=== PATIENT | male | born 1945 | race African-American/Black ===

== ENCOUNTER 2018-10-01 14:51 | Inpatient (IN) | payer MEDICARE, MEDICAID ==
[2018-10-01 16:26] LABS: #Lymphocytes 0.9 thou/uL (1.20-3.40); #Monocytes 0.5 thou/uL (0.11-0.59); #Neutrophils 7.2 thou/uL (1.40-6.50); %Basophils 0.4 % (0.0-1.0); %Eosinophils 0.1 % (0.0-10.0); %Lymphocytes 10.3 % (21.0-51.0); %Monocytes 5.7 % (0.0-10.0); %Neutrophils 83.5 % (42.0-75.0); Hemoglobin 15.1 g/dL (14.0-18.0); Mean Corpuscular HGB CONC 33.2 g/dL (32.0-36.0); Mean Corpuscular Hemoglobin 30.4 pg (27.0-31.0); Mean Corpuscular Volume 91.4 fL (78.0-98.0); Mean Platelet Volume 9.9 fL (7.4-10.4); Platelet Count 128 thou/uL (130-400); RBC Distribution Width 14.1 % (11.5-14.5); Red Blood Cell (RBC) Count 4.98 mill/uL (4.70-6.10); White Blood Cell (WBC) Count 8.7 thou/uL (4.8-10.8)
--- NOTE | 2018-10-01 16:28 | PDOC.FPRHP ---
- History of Present Illness Chief Complaint: ataxia History of Present Illness: 72yo M with pmh HTN presenting from [place] ED with complaints of stroke symptoms. Onset this morning at 1am pt fell on kitchen floor and caught himself though he was unable to get back up for about an hour. He crawled to his bed and fell asleep. Upon awakening he was still symptomatic and called EMS. At [place] ED pt found via head CT to have "interval development of hypodensity with loss of kearney white differentiation involving a 3-4cm area of R cerebellar hemisphere suspicious for recent infarction". Pt given 324mg ASA and transferred to [facility] ED. On ros pt also revealed that he had intermittent dull 6/10 CP after fall last night, it returns immediately on movement ED Course: see HPI - Allergies/Adverse Reactions Allergies Allergy/AdvReac Type Severity Reaction Status Date / Time No Known Drug Allergies Allergy Verified 10/01/18 18:07 - History PMHx: HTN PSHx: L shoulder arthroscopic procedure, appendectomy, hernia x2 FHx: stroke (sister, uncle) Social: Cigars (3/day x60 years), no etoh, no drugs - Review of Systems General: reports: fatigue. denies: fever/chills Eyes: reports: other (intermittent double vision). denies: eye pain ENT: denies: nasal congestion, rhinorrhea Respiratory: denies: congestion, shortness of breath Cardiovascular: denies: chest pain, palpitation Gastrointestinal: denies: nausea, vomiting Genitourinary: denies: dysuria, polyuria Skin: denies: rashes, lesions Musculoskeletal: denies: stiffness, swelling Neurological: reports: weakness, other (no aphasia, no facial droop). denies: numbness, syncope, seizure Psychological: denies: anxiety, depression - Vital signs BP: [131/71] HR: [68] RR: [18] Tmax: [97.7] Pox: [97]% on [ra] Wt: [93kg] - Physical Exam Constitutional: NAD, awake, alert and oriented HEENT: normocephalic and atraumatic, EOMI, grossly normal vision, grossly normal hearing, MMM Neck: supple, trachea midline Chest: no-tender to palpation Heart: RRR, normal S1/S2 Lungs: CTAB, no respiratory distress, good air movement Abdomen: soft, non-tender, bowel sounds present Musculoskeletal: normal structure, normal tone Neurological: CN II-XII intact, normal sensation, DTRs 2+, other (Strength 5/5 RUE extension/flesion, 5/5 hip flexion/extension, 5/5 ankle extension/flexion, HINTS) Skin: no rash/lesions, good turgor Heme/Lymphatic: no unusual bruising or bleeding, no purpura Psychiatric: normal mood and affect, intact recent and remote memory FMR H&P: Results - Labs Result Diagrams: 10/01/18 16:18 10/01/18 16:18 Lab results: WBC 8.7 thou/uL (4.8-10.8) 10/01/18 16:18 Hgb 15.1 g/dL (14.0-18.0) 10/01/18 16:18 Hct 45.6 % (42.0-52.0) 10/01/18 16:18 MCV 91.4 fL (78.0-98.0) 10/01/18 16:18 Plt Count 128 thou/uL (130-400) L 10/01/18 16:18 Neutrophils % 83.5 % (42.0-75.0) H 10/01/18 16:18 FMR H&P: A/P - Problem List (1) Ischemic stroke Current Visit: Yes Status: Acute Code(s): I63.9 - CEREBRAL INFARCTION, UNSPECIFIED (2) Elevated CK-MB level Current Visit: Yes Status: Acute Code(s): R74.8 - ABNORMAL LEVELS OF OTHER SERUM ENZYMES (3) Hypertension Current Visit: Yes Status: Acute Code(s): I10 - ESSENTIAL (PRIMARY) HYPERTENSION (4) Tobacco abuse Current Visit: Yes Status: Acute Code(s): Z72.0 - TOBACCO USE - Plan Acute right cerebellar CVA A- Head CT shows R cerebellar hemisphere infarction. Pt s/p 324mg ASA, and is out of tPA window. P- will consult stroke team - CTA- head and neck - MRI brain - ASA 81 mg daily - Atorvastatin - TTE - FLP and A1c HTN A- in 48 hr window for permissive HTN P- hydralazine PRN if SBP > 220 - will attempt to obtain proper med rec from family in AM Elevated CKMB A- likely 2/2 fall, normal trop x2 P- will check CPK Tobacco abuse - encourage cessation - PRN nicotine patch Diet: NPO pending dysphasia screen, then PPx: Fall, SCD Code: FULL Dispo: at least 2 nights, inpatient FMR H&P: Upper Level - Pertinent history 72 yo AAM PMH HTN and tobacco abuse. Presents with lower extremity weakness that started at approximately 0100 on 10/01/18. States he stood up in his kitchen and tried to walk to a different room when he lost control of his legs and fell to the floor. Denies LOC or head trauma. States he was on the ground for approximately 1 hour before he was able to bring himself to his feet. States he stumbled to his bedroom and leaned on the jackson to maintain his balance. States he slept until approximately 1000 today. States symptoms were still present which prompted him to seek evaluation at ER. [facility] S& ER in [place]: Labs, EKG, CT-brain, ASA 324mg, zofran [address] [facility] ER: Labs, CXR, - Pertinent findings Vitals: WNL GEN: NAD, A&Ox4, appropriately interactive. CV: RRR, no murmur Pulm: CTA-B, normal effort Neuro: CN2-12 intact, 5/5 strength all major muscle groups, 2/4 patellar reflexes, negative HiNTS exam, Difficulty with [id number] and itxl-bv-btuy movement. Extremity: no edema EKG: Sinus bradycardia, rate 54 (60s at time of exam), normal intervals, QTc 423 , normal axis. CXR: no acute processes CT-Brain: Right cerebellar CVA, suspect acute - Plan Date/Time: 10/01/18 1628 I, Merritt Graf MD, have evaluated this patient and agree with findings/plan as outlined by internet sales representative resident. Pertinent changes/additions are listed here. 1. Acute right cerebellar CVA: - consult stroke team - CTA- head and neck - MRI brain - ASA 81 mg daily - High intensity statin - outside tPA window - allow permissive HTN - TTE - FLP and A1c to risk stratify 2. HTN: - Med rec - permissive HTN 3. Tobacco abuse - encourage cessation - PRN nicotine patch 4. Elevated CKMB- likely 2/2 fall, normal trop x2 - check CPK - fluids if elevated - Trend x3 5. Diet: NPO pending dysphasia screen, then HH 6. PPx: Fall, SCD 7. Code: FULL DISPO: Inpatient, Stroke, >2midnights. Discussed with Dr. Bonds. Attending Addendum - Attending Addendum Date/Time: 10/02/18 0052. Seen on 10/01. I personally evaluated the patient and discussed the management with Dr. Alvarado. I agree with and repeated the History, Examination, Assessment and Plan documented above with any addition or exceptions noted below. The patient still feels like he cannot walk. He declines a detailed examination after "too many" tonight. He wants to sleep. He is also quite vague about his chest pain but denies any currently. He visibly moves all four extremities with good flexion and extension in bed. He has no obvious dysarthria on exam or facial asymmetry. His heart is regular without murmur, he has no carotid bruits. His lungs are clear with no increased effort. MRI ordered. Radiology called and asked us to cancel CTA as they said it was unnecessary. Will discuss with neuro in the AM. I am concerned about the nature of his CP. On his ECG he had no obvious TOVA or pronounced T wave changes concerning for [place], for instance. As he is currently CP free at the time of my exam will trend Tn and monitor his symptoms. A cardiology consultation would be reasonable, as his pain has been described as being typical on previous interviews. Permissive hypertension. Secondary prevention. PT/OT in the AM. Neuro consultation. Consider cards consultation vs stress per day team.
--- NOTE | 2018-10-01 16:36 | RAD ---
ONE VIEW CHEST: History: Right sided cerebral infarct. Altered mental status. Comparison: None. FINDINGS: Normal cardiac silhouette. The pulmonary vessels and hilum are normal. Costophrenic angles are clear. No consolidation or mass. No pneumothorax or osseous abnormalities. Hyperdense material projects ove r the proximal right upper extremity. IMPRESSION: No acute cardiopulmonary process. POS: [facility]
[2018-10-01 16:47] LABS: ALT (SGPT) 20 U/L (8-55); AST (SGOT) 22 U/L (5-34); Albumin 3.6 g/dL (3.4-4.8); Alkaline Phosphatase 79 U/L (40-150); Anion Gap 13 mmol/L (10-20); BUN (Urea Nitrogen) 17 mg/dL (8.4-25.7); Bilirubin, Total 0.3 mg/dL (0.2-1.2); Calc. Creatinine Clearance 0 mL/min (70-130); Carbon Dioxide 24 mmol/L (23-31); Chloride 106 mmol/L (98-107); Estimated GFR-MDRD Greater than 90; Globulin 3.3 g/dL (2.4-3.5); Glucose 124 mg/dL (80-115); Lipase 61 U/L (8-78); Magnesium 1.8 mg/dL (1.6-2.6); Potassium 4.2 mmol/L (3.5-5.1); Protein, Total 6.9 g/dL (5.8-8.1); Sodium 139 mmol/L (136-145)
[2018-10-01 16:50] LABS: Troponin I Less than 0.010 ng/mL (< 0.028)
[2018-10-01 16:53] LABS: CKMB 11.9 ng/mL (0-6.6)
[2018-10-01] MEDS ORDERED: Ondansetron PF 4 MG/2 ML Vial ONE (16:58)
[2018-10-01] MEDS ORDERED: Acetaminophen 325 MG TAB PO PRN (18:54)
[2018-10-01] MEDS ORDERED: Ondansetron ODT 4 MG TAB PO PRN (18:54)
[2018-10-01] MEDS ORDERED: hydrALAZINE 20 MG/ML VIAL SLOW IVP PRN (18:54)
[2018-10-01 19:17] LABS: Hemoglobin A1c 6.1 % (4.0-6.0)
[2018-10-01 19:34] LABS: Troponin I Less than 0.010 ng/mL (< 0.028)
[2018-10-01] MEDS: Atorvastatin Calcium 40 MG TAB PO SCH (20:26)
[2018-10-01] MEDS: Nicotine 21 MG PATCH TD SCH (20:26)
[2018-10-01] MEDS: Lactated Ringer's 1,000 ML IV SCH (20:30)
[2018-10-01 21:52] VITALS: BMI 27.0
[2018-10-01 22:16] LABS: Troponin I Less than 0.010 ng/mL (< 0.028)
[2018-10-01 22:22] LABS: CKMB 8.7 ng/mL (0-6.6); Critical Call CKMBM RESULT DECREASING
[2018-10-02] MEDS: Lactated Ringer's 1,000 ML IV SCH (05:08)
--- NOTE | 2018-10-02 05:33 | PDOC.FM ---
- Subjective Subjective: Mr. Medley was resting well in bed. Has no complaints this morning other than that he is hungry. He is unsure if his weakness has improved as he has not gotten out of bed yet. Denies headache, N/V, CP. - Objective MAR Reviewed: Yes Vital Signs & Weight: Vital Signs (12 hours) Temp Pulse Resp BP Pulse Ox 10/02/18 04:00 98 F 66 12 114/61 92 L 10/02/18 00:00 98.4 F 67 17 118/70 96 10/01/18 20:00 97.8 F 69 17 122/65 97 10/01/18 18:45 97.7 F 61 16 113/66 100 Weight Weight 90.446 kg Result Diagrams: 10/01/18 16:18 10/02/18 04:32 Phys Exam - Physical Examination Constitutional: NAD HEENT: moist MMs Respiratory: no wheezing, no rhonchi, clear to auscultation bilateral Cardiovascular: RRR, no significant murmur Gastrointestinal: soft (surgical scar), non-tender, no distention, positive bowel sounds Musculoskeletal: no edema Neurological: non-focal, normal sensation CN intact, 5/5 muscle strength in all extremities Psychiatric: normal affect Skin: normal turgor, cap refill <2 seconds Dx/Plan (1) Ischemic stroke Code(s): I63.9 - CEREBRAL INFARCTION, UNSPECIFIED Status: Acute (2) Elevated CK-MB level Code(s): R74.8 - ABNORMAL LEVELS OF OTHER SERUM ENZYMES Status: Acute (3) Hypertension Code(s): I10 - ESSENTIAL (PRIMARY) HYPERTENSION Status: Acute (4) Thrombocytopenia Code(s): D69.6 - THROMBOCYTOPENIA, UNSPECIFIED Status: Acute (5) Tobacco abuse Code(s): Z72.0 - TOBACCO USE Status: Chronic - Plan Plan: 72 yo M with PMH HTN presents with weakness and found to have R cerebellar CVA. Acute right cerebellar CVA - Initial head CT shows R cerebellar hemisphere infarction. Pt s/p 324mg ASA, and is out of tPA window. - Consult stroke team today, Dr. Koehler - CTA was ordered, however radiology requested it be cancelled as it was not necessary. - MRI brain pending - ASA 81 mg daily, Atorvastatin - allow permissive HTN - TTE pending HTN - in 48 hr window for permissive HTN. SBPs have been 120s or less. - hydralazine PRN if SBP > 220 - will attempt to obtain proper med rec from family in AM Elevated CKMB - likely 2/2 fall, normal trop x2 - downtrending 11.9-->8.7 Prediabetes - A1c 6.1 - No history of diabetes or abnormal BG Tobacco abuse - encourage cessation - PRN nicotine patch Diet: NPO pending dysphasia screen, then PPx: SCD Code: FULL Dispo: pending CVA workup
[2018-10-02 05:39] LABS: Anion Gap 12 mmol/L (10-20); BUN (Urea Nitrogen) 17 mg/dL (8.4-25.7); Calc. Creatinine Clearance 84 mL/min (70-130); Calcium 8.9 mg/dL (7.8-10.44); Carbon Dioxide 23 mmol/L (23-31); Cardiac Risk 3.7 (Less than 4.5); Chloride 107 mmol/L (98-107); Cholesterol 129 mg/dl (< 200 Desired); Estimated GFR-MDRD 84; Glucose 130 mg/dL (80-115); HDL Cholesterol 35 mg/dL (>60 Neg Risk); LDL Cholesterol, Calculated 77 mg/dL; Potassium 4.3 mmol/L (3.5-5.1); Sodium 138 mmol/L (136-145); Triglycerides 86 mg/dL (Less than 150)
[2018-10-02] MEDS: Aspirin 81 mg Enteric Coated Tablet PO SCH (08:06)
--- NOTE | 2018-10-02 11:18 | MRI ---
MRI BRAIN NONCONTRAST: INDICATION: Stroke, right-sided weakness. FINDINGS: There is no evidence of ventriculomegaly. There is a large region of restricted diffusion of the rig ht cerebellar hemisphere and multifocal small areas of restricted diffusion also seen within the cere bellar vermis, left cerebellar hemisphere, and approximating the right inferior cerebellar peduncle. No evidence of significant intracranial hemorrhage. There is mild to moderate chronic microvascular ischemic disease. IMPRESSION: Recent infarctions of the posterior fossa as discussed above. There is signal alteration of the righ t vertebral flow void, limited in assessment. Consider dedicated MRA neck with contrast and 3D time- of-flight MRA [place] for further evaluation. POS: [facility]
--- NOTE | 2018-10-02 11:54 | PRG ---
DATE OF SERVICE: 10/02/2018 This is an addendum to the note of Dr. Sonia Yang. Mr. Medley was admitted with a cerebellar stroke. He has just returned from MRI. The MRI shows re cent infarctions of the posterior fossa. There is signal alteration of the right vertebral blood alex w. Radiology recommends a dedicated MRA of the neck with contrast and 3D time of flight MRA [place] for further evaluation. Clinically, Mr. Medley is stable on aspirin and statin therapy. His blood pressure is normal.
[2018-10-02] MEDS ORDERED: hydrOXYzine 25 MG TAB PO PRN (12:04)
[2018-10-02] MEDS ORDERED: Benzonatate 100 MG CAP PO PRN (12:04)
--- NOTE | 2018-10-02 15:36 | MRI ---
MRA [place] 3D VOLUME RENDERING, NONCONTRAST: HISTORY: Cerebellar stroke with history of right-sided weakness. FINDINGS: There is absence of an imaged and distal right vertebral artery. The distal left vertebral artery an d basilar artery are patent. Each MAIL DISTRIBUTION SCHEME EXAMINER reveals symmetric patency. There is no high-grade stenosis or occlusion of the PAM[place]A or MCA bilaterally. The bilateral terminal carotid arteries reveal flow-relate d signal without high-grade stenosis or occlusion. No discrete intracranial aneurysm is visualized. IMPRESSION: Nonvisualization of distal right vertebral artery, which may relate to occlusion or a more proximal f low-limiting stenosis. Correlate with findings on MRA neck exam for further assessment of the verteb ral artery. POS: [facility]
--- NOTE | 2018-10-02 15:48 | MRI ---
MRA NECK WITH AND WITHOUT CONTRAST WITH 3D VOLUME RENDERING: CLINICALLY INDICATIONS: Right cerebellar infarction. Right-sided weakness. FINDINGS: There is near complete absence of flow within the right vertebral artery, compatible with near comple te occlusion. The left vertebral artery is patent. Evaluation of the bilateral cervical and interna l carotid arteries reveals no high-grade stenosis or occlusion on the right, and a focal area of mode rate stenosis at the left carotid bulb. Imaged aortic arch is patent, as are the origins of the grea t vessels that emanate from the aortic arch. IMPRESSION: 1. Near complete absence of flow within the right vertebral artery, compatible with occlusion. 2. Moderate focal stenosis of the left carotid bulb. POS: [facility]
[2018-10-02] MEDS: Nicotine 21 MG PATCH TD SCH (21:31)
[2018-10-02] MEDS: Atorvastatin Calcium 40 MG TAB PO SCH (21:31)
--- NOTE | 2018-10-03 06:21 | PDOC.FM ---
- Subjective Subjective: Mr. Medley has no complaints this morning. Says working with PT was alright. Agreeable to go to rehab. Says he doesn't know if his weakness has improved since he hasn't gotten out of bed yet this morning. - Objective MAR Reviewed: Yes Vital Signs & Weight: Vital Signs (12 hours) Temp Pulse Resp BP Pulse Ox 10/02/18 20:30 97 10/02/18 20:00 97.5 F L 63 18 123/62 97 Weight Weight 90.446 kg I&O: 10/01/18 10/02/18 10/03/18 06:59 06:59 06:59 Intake Total 1525 1120 Output Total 850 Balance 675 1120 Result Diagrams: 10/01/18 16:18 10/02/18 04:32 Phys Exam - Physical Examination Constitutional: NAD HEENT: moist MMs Respiratory: no wheezing, clear to auscultation bilateral Cardiovascular: RRR, no significant murmur Gastrointestinal: soft, non-tender, positive bowel sounds Musculoskeletal: no edema Neurological: non-focal, moves all 4 limbs Psychiatric: normal affect Skin: normal turgor, cap refill <2 seconds Dx/Plan (1) Ischemic stroke Code(s): I63.9 - CEREBRAL INFARCTION, UNSPECIFIED Status: Acute (2) Elevated CK-MB level Code(s): R74.8 - ABNORMAL LEVELS OF OTHER SERUM ENZYMES Status: Acute (3) Hypertension Code(s): I10 - ESSENTIAL (PRIMARY) HYPERTENSION Status: Acute (4) Thrombocytopenia Code(s): D69.6 - THROMBOCYTOPENIA, UNSPECIFIED Status: Acute (5) Tobacco abuse Code(s): Z72.0 - TOBACCO USE Status: Chronic (6) Physical deconditioning Code(s): R53.81 - OTHER MALAISE Status: Acute - Plan Plan: 72 yo M with PMH HTN presents with weakness and found to have R cerebellar CVA. Acute right cerebellar CVA - Initial head CT shows R cerebellar hemisphere infarction. Pt s/p 324mg ASA, and was out of tPA window. - Consult stroke team, Dr. 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 - ASA 81 mg daily, Atorvastatin - Echo showed 55-60% EF, diastolic dysfxn, mild mitral and tricuspid regurgitation HTN - Allow permissive HTN, SBPs have been 120-150s, will not start amlodipine at this time - pt prescribed amlodipine 5mg, however per pharmacy, has not filled med for over 1 month, likely noncompliant - Hydralazine prn Physical Deconditioning - patient reports weakness - PT consulted - Rehab screen Elevated CKMB - likely 2/2 fall, normal trop x2 - downtrended 11.9-->8.7 Prediabetes - A1c 6.1 - No history of diabetes or abnormal BG Tobacco abuse - encourage cessation - PRN nicotine patch Diet: IGNACIO PPx: SCD Code: FULL Dispo: pending neurology consult then possible d/c to rehab
[2018-10-03] MEDS: Aspirin 81 mg Enteric Coated Tablet PO SCH (08:28)
--- NOTE | 2018-10-03 11:12 | PRG ---
DATE OF SERVICE: 10/03/2018 This is an addendum to the note of Dr. Sonia Yang. Mr. Medley is sitting quietly in bed in no distress. His protime is still not therapeutic. We alisha l continue his current dose of Coumadin as per suggestions of Pharmacy Service.
--- NOTE | 2018-10-03 11:52 | ADD-PRG ---
DATE OF SERVICE: 10/03/2018 This is an addendum to the note of Dr. Sonia Yang. Mr. Medley is resting in bed quietly in no distress. He does have a slight posterior headache, but no new complaints. 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 He is undergoing physical therapy. He is already on aspirin and a statin. We will await further recommendations from Neurology.
[2018-10-03] MEDS: Atorvastatin Calcium 40 MG TAB PO SCH (22:46)
[2018-10-03] MEDS: Nicotine 21 MG PATCH TD SCH (22:47)
--- NOTE | 2018-10-03 23:27 | CON ---
DATE OF CONSULTATION: 10/03/2018 CONSULTING PHYSICIAN: Hospitalist Service. IMPRESSION: 1. 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 2. Hypertension. PLAN: 1. Aspirin 325 mg per day. 2. Low-dose statin. 3. The patient will be discharged home. HISTORY OF PRESENT ILLNESS: Mr. Medley is a 72-year-old gentleman with past history of hypertension, had an acute onset of problems affecting the right side of the body, who came into the emergency room for evaluation. MRI subsequently revealed a fairly large area of infarct involving the inferior portion of the right cerebellum. MRA of the cerebral vessels was unremarkable other than an absent right vertebral artery. There was no retrograde flow in the right vertebral artery. The patient was not taking aspirin prior to admission. PAST MEDICAL HISTORY: As listed above. ALLERGIES: NONE REPORTED. SOCIAL HISTORY: Unremarkable. FAMILY HISTORY: Unremarkable. REVIEW OF SYSTEMS: No complaint of headache, nausea, difficulty speaking, difficulty swallowing. Positive for mild dizziness and some mild instability of gait. PHYSICAL EXAMINATION: GENERAL: He is a healthy-appearing elderly man, in no distress. HEENT: Pupils are equal and reactive. Conjunctivae are clear. Oropharynx is clear. No nystagmus is present. NECK: Supple. EXTREMITIES: There are some postsurgical changes in the right distal arm and inability to use the right hand. Mild peripheral edema, but no cyanosis. NEUROLOGIC: Alert and appropriate. Speech is fluent and clear. Cranial nerves 2 through 12 are intact. Motor exam showed good antigravity strength bilaterally. There appeared to be some mild dysmetria in the right arm. Kcdf-hs-[id number] movements were equal. Sensation was equal. Plantar response was upgoing on the right. DIAGNOSTIC STUDIES: EKG showed normal sinus rhythm. SUMMARY: A pleasant elderly gentleman who had a right cerebellar infarct, he is improving since admission. I agree with continuing aspirin and statin. I think that he can go for outpatient therapy given his level of function. Job ID: [id number]
--- NOTE | 2018-10-04 05:23 | PDOC.FM ---
- Subjective Subjective: Mr. Medley has no complaints this morning. Eating and resting well. Reports very minimal posterior headache. Awaiting placement today. - Objective Vital Signs & Weight: Vital Signs (12 hours) Temp Pulse Resp BP Pulse Ox 10/04/18 04:00 98.2 F 83 16 138/83 93 L 10/04/18 00:00 98.6 F 82 15 144/77 H 94 L 10/03/18 20:00 97.6 F 79 16 136/82 95 Weight Weight 90.446 kg I&O: 10/02/18 10/03/18 10/04/18 06:59 06:59 06:59 Intake Total 1525 1480 2390 Output Total 238 906 4431 Balance 675 1080 1390 Result Diagrams: 10/01/18 16:18 10/02/18 04:32 Phys Exam - Physical Examination Constitutional: NAD Respiratory: clear to auscultation bilateral Cardiovascular: RRR, no significant murmur Gastrointestinal: soft, non-tender, no distention, positive bowel sounds Musculoskeletal: no edema Neurological: moves all 4 limbs Psychiatric: normal affect Skin: no rash, cap refill <2 seconds Dx/Plan (1) Ischemic stroke Code(s): I63.9 - CEREBRAL INFARCTION, UNSPECIFIED Status: Acute (2) Elevated CK-MB level Code(s): R74.8 - ABNORMAL LEVELS OF OTHER SERUM ENZYMES Status: Acute (3) Hypertension Code(s): I10 - ESSENTIAL (PRIMARY) HYPERTENSION Status: Acute (4) Thrombocytopenia Code(s): D69.6 - THROMBOCYTOPENIA, UNSPECIFIED Status: Acute (5) Tobacco abuse Code(s): Z72.0 - TOBACCO USE Status: Chronic (6) Physical deconditioning Code(s): R53.81 - OTHER MALAISE Status: Acute - Plan Plan: 72 yo M with PMH HTN presents with weakness and found to have R cerebellar CVA. Acute right cerebellar CVA - Initial head CT shows R cerebellar hemisphere infarction. Pt s/p 325mg ASA, and was out of tPA window. - Consult stroke team, Dr. 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 - ASA 325 mg daily, Atorvastatin - Echo showed 55-60% EF, diastolic dysfxn, mild mitral and tricuspid regurgitation HTN - SBPs have been 120-150s - pt prescribed amlodipine 5mg, however per pharmacy, has not filled med for over 1 month, likely noncompliant - Hydralazine prn Physical Deconditioning - patient reports weakness - PT consulted - Rehab screen Elevated CKMB, improved - likely 2/2 fall, normal trop x2 - downtrended 11.9-->8.7 Prediabetes - A1c 6.1 - No history of diabetes or abnormal BG Tobacco abuse - encourage cessation - PRN nicotine patch Diet: IGNACIO PPx: SCD Code: FULL Dispo: discharge to rehab when approved
[2018-10-04] MEDS ORDERED: Aspirin 325 MG TAB PO SCH (09:00)
--- NOTE | 2018-10-04 11:01 | PQF ---
DATE: 10-04-18 ATTN: DR. HERIBERTO RODRIGUEZ Please exercise your independent, professional judgment in responding to the clarification form. Clinical indicators are provided on the bottom of this form for your review Please check appropriate box(s): [ ] Hemiplegia Specify: [ ] Non dominant side [ ] Dominant side Status: [ ] Complete [ ] Incomplete [ x] Weakness due to CVA (please specify anatomical area) Specify: [ ] Non dominant side [ x] Dominant side [ ] Other diagnosis [ ] Unable to determine In addition, please specify: Present on Admission (POA): [x] Yes [ ] No [ ] Unable to determine CLINICAL INDICATORS - SIGNS / SYMPTOMS / LABS H&P: ACUTE RIGHT CEREBELLAR CVA PHYSICAL THERAPY 10-03-18: Pt has met transfer indp STG, and has achieved distance portion of gait STG. Despite progress, further PT is needed to addres R sided hemiparesis/proprioceptive deficits as these cont to affect pts balance, safety, and functional indp. RISK FACTORS: H&P: ACUTE RIGHT CEREBELLAR CVA TREATMENT: PHYSICAL THERAPY CONSULT 10-03-18: RECOMMENDATIONS: REHAB CTR, OCCUPATIONAL THERAPY, PHYSICAL THERAPY (This form is maintained as a part of the permanent medical record) 2015 [employer]. All Rights Reserved [email or web address] Office: [phone] GIGI
[2018-10-04 11:34] VITALS: BP 162/90; TEMP 97.7
--- NOTE | 2018-10-05 08:54 | PRG ---
DATE OF SERVICE: 10/04/2018 ADDENDUM: This is an addendum to the note of Dr. Sonia Yang. Mr. Medley is ambulating in the [place] with a walker with no difficulty. He looks and feels fine and will be discharged today for outpatient physical therapy. He is again instructed to take aspirin, atorvastatin, and continue with his blood pressure medication. He was seen in consultation by Dr. Koehler of Neurology Service, who agree with our management. Job ID: [id number]
--- NOTE | 2018-10-05 15:21 | DIS ---
DATE OF ADMISSION: 10/01/2018 DATE OF DISCHARGE: 10/04/2018 ADMITTING ATTENDING: Diego Bonds MD CONSULT: Neurology, Dr. Bowen. PROCEDURES: 1. On 10/01/2018, chest x-ray showed no acute cardiopulmonary process. 2. On 10/02/2018, brain MRI showed recent infarctions of the posterior fossa, right cerebellar hemisphere and multifocal small areas of restricted diffusion also seen within the cerebellar vermis, left cerebellar hemisphere, and approximating the right inferior cerebellar peduncle. No evidence of significant intracranial hemorrhage. [id number] chronic microvascular ischemic disease. No evidence of ventriculomegaly. 3. On 10/02/2018, brain and neck MRA showed non-visualization of distal right vertebral artery which may relate to occlusion or more proximal flow-limiting stenosis. Near complete absence of flow within the right vertebral artery was seen compatible with occlusion. Moderate focal stenosis of the left carotid bulb. 4. Echocardiogram on 10/02/2018 showed left ventricular ejection fraction estimated at 55% to 60%, E/A flow reversal noted, suggestive of diastolic dysfunction, mild mitral regurgitation present, mild tricuspid regurgitation. PRIMARY DIAGNOSES: 1. Acute right cerebellar cerebrovascular accident. 2. Hypertension. 3. Physical deconditioning. 4. Elevated CK-MB. 5. Prediabetes. 6. Tobacco abuse. DISCHARGE MEDICATIONS: 1. Tizanidine 4 mg p.o. nightly p.r.n. 2. Naproxen 500 mg p.o. b.i.d. 3. Atarax 25 mg p.o. q.6 hours p.r.n. 4. Benzonatate 100 mg p.o. t.i.d. p.r.n. 5. Amlodipine 5 mg p.o. daily. 6. Promethazine DM syrup 5 mL p.o. q.6 hours p.r.n. 7. Lipitor 40 mg p.o. nightly. 8. Aspirin 325 mg p.o. daily. HISTORY OF PRESENT ILLNESS: A 72-year-old male with past medical history of hypertension, presented from the [facility] ED with complaints of stroke like symptoms. At onset, he fell on the kitchen floor, caught himself, but was unable to get back up for an hour. He crawled to bed and fell asleep. Upon awakening, he was still symptomatic and called EMS. CT at the [facility] ED showed interval development of hypodensity with loss of kearney-white differentiation involving a 3 to 4 cm area of right cerebellar hemisphere suspicious for recent infarction. The patient was given aspirin and transferred to [place] [facility]. He was admitted for workup of acute right cerebellar stroke. He was out of the TPA window. Stroke team was consulted as well as Neurology. MRI and MRA of brain were considered to be the best studies and were completed with results as above. The patient was started on aspirin and statin. Echocardiogram was completed as well. The patient was initially noted to have an elevated CK-MB which was likely secondary to the fall. He had normal cardiac enzymes otherwise and this elevation decreased. Cessation was encouraged for tobacco abuse. The patient was noted to have history of hypertension, on amlodipine. However, pharmacy noted that patient had not filled amlodipine in the recent past. Significant labs included a hemoglobin A1c of 6.1, prediabetes. This can be followed up in the outpatient setting. Additionally, triglycerides 86, cholesterol 129, LDL 77, HDL 35. The patient continued to have weakness and instability in gait. Physical Therapy and Occupational Therapy saw the patient. He was cleared by Speech Therapy for swallowing; however, it was determined that physical therapy treatment would be most appropriate for patient. He was discharged to inpatient rehab to improve mobility. DISPOSITION: Stable. DISCHARGE INSTRUCTIONS: Location: Inpatient rehab. Diet: Heart healthy. Activity: As tolerated. Follow up with PCP in 7 days. Job ID: [id number]
== END 2018-10-04 13:43 | DRG 66 ==
LOC: ERS 14:51 → ERHOLD 16:50 → 2SE 18:39
PROVIDERS: ADMIT Student in an Organized Health Care Education/Training Program; ATTEND Student in an Organized Health Care Education/Training Program
DX: I63.341 Cerebral infarction due to thrombosis of right cerebellar artery (principal); R53.1 Weakness; I10 Essential (primary) hypertension; Z91.81 History of falling; Z79.82 Long term (current) use of aspirin; R73.03 Prediabetes; F17.290 Nicotine dependence, other tobacco product, uncomplicated; D69.6 Thrombocytopenia, unspecified; Z79.899 Other long term (current) drug therapy
CPT/HCPCS: 36415; 70544; 70549; 70551; 71045; 80048; 80053; 80061; 82553; 83036; 83690; 83735; 84484; 85025; 93306; 96374; G8978-GP-CK; G8979-GP-CI; G8999-GN-CJ; G9186-GN-CI; J2405; Q0162

== ENCOUNTER 2019-02-23 16:18 | Observation (INO) | payer MEDICARE, MEDICAID ==
[2019-02-23 16:39] LABS: #Basophils 0.1 thou/uL (0.0-0.2); #Eosinphils 0.2 thou/uL (0.0-0.7); #Lymphocytes 2.1 thou/uL (1.20-3.40); #Monocytes 0.5 thou/uL (0.11-0.59); #Neutrophils 3.5 thou/uL (1.40-6.50); %Basophils 0.9 % (0.0-1.0); %Eosinophils 2.5 % (0.0-10.0); %Lymphocytes 33.3 % (21.0-51.0); %Monocytes 7.9 % (0.0-10.0); %Neutrophils 55.5 % (42.0-75.0); Hemoglobin 14.6 g/dL (14.0-18.0); Mean Corpuscular HGB CONC 32.8 g/dL (32.0-36.0); Mean Corpuscular Hemoglobin 30.2 pg (27.0-31.0); Mean Platelet Volume 10.4 fL (7.4-10.4); Platelet Count 132 thou/uL (130-400); RBC Distribution Width 14.1 % (11.5-14.5); Red Blood Cell (RBC) Count 4.84 mill/uL (4.70-6.10); White Blood Cell (WBC) Count 6.2 thou/uL (4.8-10.8)
[2019-02-23 16:46] LABS: Prothrombin Time 13.5 SEC (12.0-14.7)
[2019-02-23 16:59] LABS: ALT (SGPT) 22 U/L (8-55); AST (SGOT) 27 U/L (5-34); Albumin 3.8 g/dL (3.4-4.8); Alkaline Phosphatase 76 U/L (40-150); Anion Gap 8 mmol/L (10-20); BUN (Urea Nitrogen) 14 mg/dL (8.4-25.7); Bilirubin, Total 0.4 mg/dL (0.2-1.2); CK (CPK) 434 U/L (30-200); Calc. Creatinine Clearance 0 mL/min (70-130); Calcium 9.5 mg/dL (7.8-10.44); Carbon Dioxide 29 mmol/L (23-31); Chloride 103 mmol/L (98-107); Estimated GFR-MDRD 65; Globulin 2.9 g/dL (2.4-3.5); Glucose 96 mg/dL (83-110); Potassium 4.4 mmol/L (3.5-5.1); Protein, Total 6.7 g/dL (5.8-8.1); Sodium 136 mmol/L (136-145)
[2019-02-23 17:05] LABS: PTT 35.4 SEC (22.9-36.1); Prothrombin Time 13.6 SEC (12.0-14.7)
--- NOTE | 2019-02-23 17:37 | CT ---
CT HEAD WITHOUT IV CONTRAST COMPARISON: None HISTORY: Blurry vision. TECHNIQUE: Axial CT imaging at 5 mm intervals from vertex through skull base without contrast FINDINGS: Focal area of encephalomalacia seen within the right cerebellar hemisphere related to remote infarcti on. Diminished areas of attenuation are seen in the periventricular white matter likely attributable to chronic small vessel ischemic changes. There is no evidence of an acute infarction, h emorrhage, mass effect, or midline shift. The ventricular system is normal in size, shape, and position. Visualized paranasal sinuses are clear. Osseous structures appear intact.Mastoid air cells appear clear. IMPRESSION: 1. No acute intracranial abnormality demonstrated. 2. Chronic small vessel ischemic changes. 3. Encephalomalacia right cerebellar hemisphere related to remote area of infarction seen in the righ t cerebellar hemisphere seen on prior MRI. Area of encephalomalacia is much smaller in size than the signal abnormalities on prior MRI exam.
--- NOTE | 2019-02-23 18:33 | RAD ---
AP VIEW CHEST: 02/23/19 HISTORY: Weakness. AP view chest is obtained on 02/23/19. Comparison made to previous exam from 10/01/18. AP view chest demonstrates EKG leads seen over the chest. The lungs are well aerated. No evidence of active intrathoracic disease seen. No evidence of effusions, pneumonia or pneumothorax seen. IMPRESSION: Unremarkable AP view chest. POS: [facility]
[2019-02-23] MEDS ORDERED: Ondansetron PF 4 MG/2 ML Vial IVP PRN (19:34)
[2019-02-23] MEDS ORDERED: Labetalol HCl 100 MG/20 ML VIAL SLOW IVP PRN (19:34)
[2019-02-23] MEDS ORDERED: Acetaminophen 325 MG TAB PO PRN (19:34)
[2019-02-23] MEDS ORDERED: Ondansetron ODT 4 MG TAB PO PRN (19:34)
[2019-02-23] MEDS ORDERED: hydrALAZINE 20 MG/ML VIAL SLOW IVP PRN (19:34)
[2019-02-23] MEDS ORDERED: hydrOXYzine 25 MG TAB PO PRN (19:39)
[2019-02-23] MEDS ORDERED: tiZANidine HCl 4 MG TAB PO PRN (19:39)
[2019-02-23] MEDS ORDERED: Clopidogrel Bisulfate 75 MG TAB PO SCH (19:45)
[2019-02-23 20:22] VITALS: BMI 27.3
[2019-02-23] MEDS ORDERED: Atorvastatin Calcium 40 MG TAB PO SCH (21:00)
[2019-02-23] MEDS: Famotidine 20 MG TAB PO SCH (21:46)
--- NOTE | 2019-02-23 23:19 | HP ---
PRIMARY CARE PHYSICIAN: Dr. Barraza. CHIEF COMPLAINT: Headache, blurred vision, right-sided weakness. HISTORY OF PRESENT ILLNESS: Mr. Medley is a 73-year-old male with past medical history of GI bleed, chronic left shoulder and back pain, hypertension, asthma, and recent CVA about 4 months ago, who had presented to [facility] after he had developed a headache, right eye blurred vision, and right-sided weakness. He states when he is up walking around, he has noticed that he is fading off to the right. He states that the symptoms were also present about 4 months ago when he had sustained his stroke. Back in September of 2018, he had an echocardiogram, which displayed an ejection fraction of 55% to 60% and an MRA of his head and neck, which reveals an infarct of his posterior fossa, right cerebellar hemisphere and multifocal small areas of restricted diffusion also seen within the cerebellar vermis, left cerebral hemisphere and approximating the right inferior cerebellar peduncle. It was also noted that the patient had a near-complete absence of flow within the right vertebral artery compatible with occlusion and moderate focal stenosis of the left carotid bulb was also noted. The patient was seen by Dr. Koehler during that visit, who had recommended the patient continue on aspirin 325 mg daily along with statin therapy. The patient was later discharged to inpatient rehab to seek further PT and OT. The patient states that over the last several months that he was improving in strength reyes. He states that he walks at home with a cane. He states it was until about 2 days ago that he had developed a posterior headache and has right eye blurred vision. He had denied any slurred speech or facial droop. He had denied any chest pain, palpitation, or shortness of breath. He had denied any abdominal pain, nausea, or vomiting. During his initial workup in the ER, CT brain without contrast showed no acute intracranial abnormality, but did show some chronic small-vessel ischemic changes and right cerebral hemisphere encephalomalacia related to remote area of infarction seen in the right cerebral hemisphere on prior MRI. This area is much smaller in size than the signal abnormalities on prior MRI. The patient was started on Plavix 75 mg daily and his statin therapy was then increased, plan is to admit under observation to be monitored overnight. Dr. Koehler will be consulted in the morning and the patient will undergo MRI and further evaluation with a carotid Doppler, these are pending at this time. REVIEW OF SYSTEMS: All other systems reviewed and found to be negative unless mentioned in the HPI. PAST MEDICAL HISTORY: Significant for GI bleed, chronic left shoulder and back pain, hypertension, hyperlipidemia, asthma, and prior CVA. PAST SURGICAL HISTORY: Appendectomy, hernia repair, back and left shoulder surgery. PSYCHIATRIC HISTORY: None. SOCIAL HISTORY: The patient admits to smoking about a pack of cigarettes per day, however, denies any alcohol or illicit drug use. KNOWN ALLERGIES: None. CURRENT HOME MEDICATIONS: 1. Amlodipine 5 mg oral daily. 2. Atarax 25 mg oral every 6 hours p.r.n. itching. 3. Tizanidine 4 mg p.o. daily at bedtime. 4. Atorvastatin 40 mg oral once daily. 5. Aspirin 325 mg oral daily. PHYSICAL EXAMINATION: VITAL SIGNS: BP 145/89, pulse 72, respirations 17, temperature 98.2 degrees Fahrenheit, O2 saturations 99% on room air. GENERAL: The patient is awake, alert, and oriented x3. He is lying comfortably in bed, in no acute distress noted. HEENT: Atraumatic, normocephalic. Pupils are round and reactive to light. Extraocular muscles intact. Blurred vision noted on the right. NECK: Soft, supple. Trachea midline. CARDIOVASCULAR: Positive S1 and S2. Regular rate and rhythm. No murmur auscultated. RESPIRATORY: Clear to auscultation bilaterally. No wheezes, rales, or rhonchi. ABDOMEN: Soft, nontender. Bowel sounds present. MUSCULOSKELETAL: Strength 5+ on the left; however, 4+ noted on the right. Moves all extremities equal. No edema noted. NEUROLOGIC: Cranial nerves 2 through 12 grossly intact, however, has a noticeable blurry vision noted on the right. Speech intact and normal. Gait not assessed. SKIN: Warm, dry, and intact. No rashes. No ulceration noted. PSYCHIATRIC: Good mood and affect. LABORATORY DATA: WBC 6.2, RBC 4.84, hemoglobin 14.6, platelet 132. Sodium 136, potassium 4.4, anion gap 8, BUN 14, creatinine 1.31, estimated GFR 65, glucose 96. Creatine kinase 434. Troponin less than 0.010. BNP less than 10. DIAGNOSTIC IMAGING: CT of brain without contrast showed no acute intracranial abnormality, however, did demonstrate some chronic small-vessel ischemic changes and encephalomalacia right cerebral hemisphere related to remote area of infarction seen in the right cerebral hemisphere seen on prior MRI. Area is much smaller in size in the signal abnormalities on prior MRI. Portable chest x-ray was unremarkable. ASSESSMENT AND PLAN: 1. Headache and right-sided blurred vision, will rule out transient ischemic attack/cerebrovascular accident. MRI and further evaluation with a carotid Doppler are ordered and pending at this time. Dr. Koehler is consulted for further evaluation. He will be restarted on his home medications including aspirin 325 mg daily. His statin will be increased to atorvastatin 80 mg daily and Plavix 75 mg daily will be added. The patient has no history of a migraine in the past, however, this also could be likely secondary to complex migraine. We will await further evaluation from Dr. Koehler and further recommendations. 2. History of hypertension, currently stable at this time. Continue on the patient's home regimen. 3. Hyperlipidemia. Continue on statin therapy and check lipid panel in the morning. 4. Prior history of cerebrovascular accident. Continue as above and await MRI and again the results from the carotid Doppler. Dr. Koehler will be consulted. 5. Deep venous thrombosis and gastrointestinal prophylaxis. 6. Code status, full code. 7. Surrogate decision maker is Karen Zambrano, his sister. DISPOSITION: Pending further workup and clinical findings. Job ID: [id number]
[2019-02-24 05:45] LABS: #Basophils 0.1 thou/uL (0.0-0.2); #Eosinphils 0.2 thou/uL (0.0-0.7); #Lymphocytes 1.5 thou/uL (1.20-3.40); #Monocytes 0.5 thou/uL (0.11-0.59); #Neutrophils 2.8 thou/uL (1.40-6.50); %Eosinophils 3.1 % (0.0-10.0); %Monocytes 10.3 % (0.0-10.0); %Neutrophils 56.6 % (42.0-75.0); Hemoglobin 14.2 g/dL (14.0-18.0); Mean Corpuscular HGB CONC 32.5 g/dL (32.0-36.0); Mean Corpuscular Hemoglobin 29.5 pg (27.0-31.0); Mean Corpuscular Volume 90.9 fL (78.0-98.0); Mean Platelet Volume 10.6 fL (7.4-10.4); Platelet Count 129 thou/uL (130-400); RBC Distribution Width 14.2 % (11.5-14.5); Red Blood Cell (RBC) Count 4.83 mill/uL (4.70-6.10)
[2019-02-24 06:01] LABS: Anion Gap 12 mmol/L (10-20); BUN (Urea Nitrogen) 21 mg/dL (8.4-25.7); Calc. Creatinine Clearance 73 mL/min (70-130); Calcium 9.5 mg/dL (7.8-10.44); Carbon Dioxide 25 mmol/L (23-31); Cardiac Risk 3.1 (Less than 4.5); Chloride 107 mmol/L (98-107); Cholesterol 99 mg/dl (< 200 Desired); Estimated GFR-MDRD 72; Glucose 125 mg/dL (83-110); HDL Cholesterol 32 mg/dL (>60 Neg Risk); LDL Cholesterol, Calculated 47 mg/dL; Potassium 4.5 mmol/L (3.5-5.1); Sodium 139 mmol/L (136-145); Triglycerides 101 mg/dL (Less than 150)
[2019-02-24] MEDS: Famotidine 20 MG TAB PO SCH (08:52)
[2019-02-24] MEDS ORDERED: Enoxaparin Sodium 40 MG/0.4 ML SYRINGE SC SCH (09:00)
[2019-02-24] MEDS ORDERED: Clopidogrel Bisulfate 75 MG TAB PO SCH (09:00)
[2019-02-24] MEDS ORDERED: Amlodipine 5 MG TAB PO SCH (09:00)
--- NOTE | 2019-02-24 09:09 | ULT ---
CAROTID ULTRASOUND WITH GRAYSCALE AND DOPPLER DUPLEX COLORFLOW IMAGING SPECTRAL ANALYSIS PERFORMED: CLINICAL INDICATION: TIA. FINDINGS: There is mild scattered atherosclerotic calcification of the carotid arteries. PEAK SYSTOLIC VELOCITY (CM/S): Right CCA 108 Left CCA 112 Right ICA 104 Left ICA 91 There is antegrade flow within the visualized bilateral vertebral arteries. IMPRESSION: 1. No hemodynamically significant stenosis of the right internal carotid artery. 2. No hemodynamically significant stenosis of the left internal carotid artery. POS: [facility]
--- NOTE | 2019-02-24 11:21 | MRI ---
EXAM: MRI Brain WO Con PROVIDED CLINICAL HISTORY: Dizziness for 2 days. Stroke 4-5 months ago with left-sided weakness. COMPARISON: 10/02/2018. FINDINGS: There is motion artifact on all pulse sequences which does mildly degrade image quality. As noted on the prior exam, there are punctate and patchy areas of increased FLAIR and T2-weighted signal intensity seen in the periventricular white matter most compatible with chronic small vessel ischemic changes. There is now evidence of encephalomalacia and gliosis in the right cerebellar hemisphere related to remote infarction. Signal abnormalities in the right cerebellar hemisphere noted on prior study have significantly decreased in size. Signal abnormalities in the left cerebellar hemisphere have resolved. No acute infarction is visualized on today's exam. Appropriate flow voids are demonstrated the base of the brain. Mild mucosal thickening is present in each frontal sinus as well as anterior ethmoidal air cells. The orbits and skull base have a normal MRI appearance. IMPRESSION: 1. No acute intracranial abnormality is demonstrated. 2. Chronic small vessel ischemic changes and mild cerebral volume loss. 3. Encephalomalacia and gliosis right cerebellar hemisphere related to remote infarction.
[2019-02-24 11:54] VITALS: TEMP 97.9
--- NOTE | 2019-02-24 15:15 | PRG ---
DATE OF SERVICE: 02/24/2019 CONSULTING PHYSICIAN: Hospitalist Service. SUBJECTIVE: Mr. Medley presented with complaints of low-grade headache and some blurred vision on the right side, that had been going on for [address] scan of the brain showed an area of old infarct in the right cerebellum. His previous echocardiogram showed a normal ejection fraction of 55% to 60%. His carotid ultrasound was unremarkable for any occlusions. He had been compliant with his aspirin. Plavix has been started. His exam is nonfocal. His workup is complete. The symptoms have resolved without any visible sign of injury. I agree with current care. Job ID: [id number]
--- NOTE | 2019-02-25 00:35 | DIS ---
DATE OF ADMISSION: 02/23/2019 DATE OF DISCHARGE: 02/24/2019 This is MARQUES Parham dictating a report for Palomo Valadez MD. CONSULT PHYSICIAN: Dr. Koehler, Neurology. DISCHARGE DIAGNOSES: 1. Pain. 2. Headache. 3. Hypertension. 4. Hyperlipidemia. 5. History of cerebrovascular accident. HOSPITAL COURSE: Mr. Medley is a very pleasant 73-year-old man who was admitted after presenting with headache, blurred vision, and right-sided weakness. The symptoms fully settled upon admission and has had no further recurring symptoms. The patient states he is in great spirits this morning and very eager to be discharged home. He has undergone multiple investigations including a CT of the brain which showed chronic small-vessel ischemic changes, encephalomalacia of the right cerebellar hemisphere which appears smaller compared to prior study. In the ED, he was started on Plavix 75 mg daily and his statin was increased to 80 mg at bedtime. The patient has been seen by Dr. Koehler, who has cleared him for discharge home given the fact that his remaining investigations have also been unremarkable. He underwent a carotid ultrasound that showed no evidence of stenosis. He also underwent an MRI of the brain, which has demonstrated no acute intracranial abnormality. He is noted to have chronic small-vessel ischemic changes and mild cerebral volume loss. His laboratory studies have been unremarkable since admission. He does have CKD and initially, had a GFR of 65, which improved to 72 on day of discharge. He did have an elevated CK of 434, improved to 221. His troponin was negative and BNP was less than 10. Lipid panel was obtained. The patient has been up and moving with physical therapy and denies having any dizziness or unsteadiness. States he is mobilizing as per baseline. He has been tolerating a regular diet and is without complaints. REVIEW OF SYSTEMS: The patient denies having any chest pain, palpitations, or shortness of breath. Denies having any further headaches or dizziness as mentioned previously. Denies any nausea or vomiting. Moving his bowels as normal and denies any urinary symptoms. He has remained afebrile. No neuro deficits. All other review of systems are negative. PHYSICAL EXAMINATION: GENERAL: The patient appears well developed, well nourished, is in no acute distress. VITAL SIGNS: Temperature 97.9, pulse 72, respirations 20, O2 saturation 97% on room air, blood pressure 138/84. HEENT: Normocephalic and atraumatic. Pupils are equal, round, and reactive to light. Extraocular movements intact without any nystagmus present. Facial movements normal and sensation intact. No tongue deviation. Oropharynx is clear. NECK: Supple without lymphadenopathy. Full range of motion. CARDIAC: Regular rate and rhythm. LUNGS: Clear to auscultation bilaterally. ABDOMEN: Soft, nontender, nondistended. Normoactive bowel sounds present. No guarding or rigidity. No renal angle tenderness. EXTREMITIES: Without any lower limb edema. NEUROLOGIC: Alert and oriented x3. No focal deficits. LABORATORY DATA: White blood count unremarkable. Sodium 139, potassium 4.5, BUN 21, creatinine 1.27, GFR 72, glucose 125, lactic acid 0.9, calcium 8.5. LFTs unremarkable. CK 221. Troponin less than . BNP less than 10. Triglycerides 101, cholesterol 99, LDL 47, HDL 22. Heart disease risk ratio 3.1. IMAGING DATA: 1. Chest x-ray, 02/23/2019. Unremarkable. 2. CT brain, 02/23/2019. No acute intracranial abnormality. Chronic small-vessel ischemic changes present. Encephalomalacia, right cerebellar hemisphere related to large area of infarction seen in the right cerebellar hemisphere on prior MRI. Area of encephalomalacia is smaller than previous MRI study. 3. Carotid Doppler study, 02/24/2019. No evidence of stenosis bilaterally. 4. MRI brain, 02/24/2019. No acute intracranial abnormality. Chronic small-vessel ischemic changes. A mild cerebral volume loss. Encephalomalacia and gliosis, right cerebellar hemisphere related to remote infarction. CONDITION AT DISCHARGE: Stable. ACTIVITY: As tolerated. DIET: Heart healthy. FOLLOWUP: The patient will follow up with primary care physician within one week. DISCHARGE MEDICATIONS: Prescription provided for atorvastatin 80 mg p.o. at bedtime. We will continue on aspirin 325 mg p.o. daily. Prescription provided for Plavix 75 mg p.o. daily. The patient otherwise advised to resume all other home medications. DISPOSITION: The patient medically cleared for discharge home today, 02/24/2019. The patient is seen and discussed with Dr. Valadez who agrees upon care as described above. Job ID: [id number]
[2019-02-25 08:13] VITALS: BP 131/83
== END 2019-02-24 15:45 | disposition home or self-care (01) ==
LOC: ERS 16:18 → 2SE 18:49
PROVIDERS: ADMIT Internal Medicine; ATTEND Internal Medicine
DX: R51 Headache (principal); H53.8 Other visual disturbances; R53.1 Weakness; G89.29 Other chronic pain; M25.512 Pain in left shoulder; M54.9 Dorsalgia, unspecified; I12.9 Hypertensive chronic kidney disease with stage 1 through stage 4 chronic kidney disease, or unspecified chronic kidney disease; N18.9 Chronic kidney disease, unspecified; E78.5 Hyperlipidemia, unspecified; J45.909 Unspecified asthma, uncomplicated; F17.210 Nicotine dependence, cigarettes, uncomplicated; Z79.82 Long term (current) use of aspirin; Z79.899 Other long term (current) drug therapy; Z86.73 Personal history of transient ischemic attack (TIA), and cerebral infarction without residual deficits
CPT/HCPCS: 70450; 70551; 71045; 80048; 80053; 80061; 82550 ×2; 82962; 83605; 83880; 84484; 85025 ×2; 85610 ×2; 85730 ×2; 93005; 93880; 96372; 97139; 99285; G0378 ×2; 36415; 36416; J1650